=== PATIENT | male | born 1995 | race Caucasian/White ===

== ENCOUNTER 2025-01-20 22:30 | Emergency (ER) | payer OTHER, SELFPAY ==
[2025-01-20 22:32] VITALS: BP 121/95
[2025-01-20 22:55] LABS: Urine Character Clear (Clear)
[2025-01-20 22:56] LABS: Hematocrit 49.0 % (39.0-52.0); Hemoglobin 15.3 g/dL (13.0-18.0); Mean Corp Hgb Conc. 31.2 g/dL (33.0-37.0); Mean Corpuscular Volume 64.1 fL (80.0-94.0); Nucleated Red Blood Cells % 0 % (-); Platelet Count 341 10^3/uL (130-400); Red Cell Dist. Width 18.0 % (11.5-14.5)
[2025-01-20 23:19] LABS: ALT (SGPT) 13 U/L (0-50); AST (SGOT) 21 U/L (17-59); Albumin 4.6 g/dl (3.5-5.0); Alkaline Phosphatase 40 U/L (38-126); Blood Urea Nitrogen 20 mg/dl (9-20); Calcium 9.3 mg/dl (8.4-10.2); Carbon Dioxide 25 mmol/L (22-30); Chloride 101 mmol/L (98-107); Glucose 152 mg/dl (70-99); Potassium 4.4 mmol/L (3.5-5.1); Sodium 135 mmol/L (135-145); Total Protein 7.1 g/dl (6.3-8.2); eGFR > 60.00
[2025-01-20 23:21] LABS: Urine Squamous Cell None seen /LPF (Few)
[2025-01-20 23:25] LABS: Urine Red Blood Cell None Seen /HPF (0-2)
[2025-01-20 23:26] LABS: Urine White Cell 0-2 /HPF (0-5)
[2025-01-20 23:32] LABS: Troponin I < 0.012 ng/ml
--- NOTE | 2025-01-21 02:22 | ED.GENMED ---
History of Present Illness
General
Chief Complaint: Weakness
Source: patient
Exam Limitations: none
Time Seen by Provider: 01/21/25 01:32
Nursing documentation reviewed up to this point in time: agreed with
History of Present Illness
History of Present Illness:
29-year-old male presenting to the emergency department today with concerns of an episode where he had itchiness and sweating to the ankles legs palms and lip while jogging. Also noted some purple discoloration to the nailbeds. EMS was called and
he was transported to the ER. Symptoms are fully resolved at this point no chest pain shortness of breath or trouble swallowing or breathing no swelling. No hives.
Past History
Past History
ED Past Medical History: None
ED Past Surgical History: None
Social History
Tobacco: Non-smoker
Alcohol: Occasional
Drug: None
Personal: Single
Living: with family
Review of Systems
Review of Systems
Allergies reviewed?: Yes
All Other Systems: ROS reviewed and negative except as documented in HPI and ROS
Phy Exam
Physical Exam
Physical Exam:
GENERAL: Alert , in no apparent distress
EYE: pupils equal and reactive
NECK: Supple, no significant adenopathy.
ENT: o/p clr, mmm.
CARDIAC: Regular rate and rhythm .
LUNGS: Clear breath sounds bilaterally, no acute respiratory distress, no wheezes/rales/rhonchi
ABDOMEN: Soft, without focal tenderness, no r/g, no cvat
NEUROLOGICAL: Alert and oriented, no focal neuro deficits
SKIN: Warm and dry, skin intact.
MUSCULOSKELETAL: No edema, well perfused.
PSYCH: Normal and appropriate interaction.
Course
Orders/Labs/Results
Orders:
Orders
01/20/25 22:36
Electrocardiogram (*1) Urgent
Reason for Study: Chest Pain
EKG- Treatment ONCE
01/20/25 22:44
Complete Blood Count/With Diff Urgent
Comprehensive Metabolic Panel Urgent
Monotest Urgent
Troponin I Urgent
UA Reflex to Culture [Urinalysis Reflex To Culture] Urgent
Date Specimen was Collected: 01/20/25
Time Specimen was Collected: 22:38
Urine Microscopic Reflex Cult Urgent
Abnormal Lab Results
01/20/25
22:44
WBC 14.7 H 10^3/uL
(4.8-10.8)
RBC 7.65 H 10^6/uL
(4.70-6.10)
MCV 64.1 L fL
(80.0-94.0)
MCH 20.0 L pg
(27.0-31.0)
MCHC 31.2 L g/dL
(33.0-37.0)
RDW 18.0 H %
(11.5-14.5)
Abs Immat Gran (auto) 0.1 H 10^3/uL
(0-0.05)
Absolute Neuts (auto) 11.5 H 10^3/uL
(1.4-6.5)
Absolute Monos (auto) 0.8 H 10^3/uL
(0.1-0.6)
Neutrophils % 78.4 H %
(42.2-75.2)
Lymphocytes % 14.6 L %
(20.5-51.1)
Glucose 152 H mg/dl
(70-99)
Urine Albumin (Reflex) 1+ A
(Neg - Trace)
01/20/25 22:44
01/20/25 22:44
Vital Signs
Initial and Last Documented VS:
Initial Vital Signs
Temp Pulse Resp BP Pulse Ox
98.2 F 94 16 121/95 100
01/20/25 22:32 01/20/25 22:32 01/20/25 22:32 01/20/25 22:32 01/20/25 22:32
Last Documented Vital Signs
Temp Pulse Resp BP Pulse Ox
98.2 F 94 16 121/95 100
01/20/25 22:32 01/20/25 22:32 01/20/25 22:32 01/20/25 22:32 01/20/25 22:32
MDM/Problems Addressed
MDM/Problems Addressed:
29-year-old male presenting to the emergency department after an event while running earlier today peripheral vasoconstriction of the sure of the cause. Does not sound to be consistent with anaphylaxis. No rash no hives no swelling. No ongoing
symptoms here labs unremarkable. He patient follow-up otherwise no emergent findings at this time.
*Pulse Oximetry
SaO2: 100
Oxygen Mode of Delivery: Room air
Patient hypoxic: no (100)
*Critical Care Note
Total Time (30-74mins, 75-104mins- exclusive of procedures): Not Applicable
ED Attending Note
-
Portions of this chart may have been created with voice recognition software.� Occasional wrong word or��sound alike� substitutions may have occurred due to the inherent limitations of voice recognition software.
Discharge Plan
Departure
Patient Disposition: Home (Routine Discharge)
Date of Disposition: 01/21/25
Time of Disposition: 02:22
Patient with high blood pressure during this ER visit?: No
Condition: Good
Covid-19: Not Applicable
Discharge Problem:
Skin change
Prescriptions:
No Action
loratadine 10 mg Tablet
10 mg PO DAILY Qty: 30 0RF
famotidine [Pepcid] 20 mg tablet
20 mg PO DAILY Qty: 30 0RF
prednisone 10 mg tablet
10 mg PO DIRECTED Qty: 30 0RF
Rx Instructions:
4 tablets daily for 2 days, then 3 tabs for 3 days, then 2 tabs for 3 days, then 1 tab for 3 days
diphenhydramine HCl [Banophen] 25 mg capsule
25 mg PO HS PRN (Reason: allergy symptoms) Qty: 14 0RF
Referrals:
NONE,* [Family Provider, Internal Medicine]
Activity Restrictions/Additional Instructions:
You came to the emergency department today after an event at home. This could be due to a vascular change but is unclear the cause. Here there was no evidence of any ongoing symptoms or any emergent process at this time. It is important follow-up
closely with the primary care doctor. Return for any worsening, new or concerning symptoms.
Interventions
Interventions:
*Risk Screen - Suicide Last Done: 01/20/25 22:32
*Neglect/Abuse Screening Last Done: 01/20/25 22:32
Discharge Date and Time
Print Language: GREEK
[2025-01-21 02:29] VITALS: BP 125/82
== END 2025-01-21 02:31 | disposition home or self-care (01) ==
LOC: EMR 22:30
PROVIDERS: Student in an Organized Health Care Education/Training Program; EMERGENCY PHYSICIAN Emergency Medicine
DX: R23.8 Other skin changes (principal); R53.1 Weakness
CPT/HCPCS: 99284; 80053; 81003; 81015; 84484; 85025; 86308; 93005